=== PATIENT | female | born 1960 | race Caucasian/White ===

== ENCOUNTER 2018-08-23 20:50 | Emergency (ER) | payer OTHER | END 2018-08-23 21:43 | disposition home or self-care (01) | LOC: FER 20:50 ==

== ENCOUNTER 2018-10-01 14:21 | Emergency (ER) | payer OTHER ==
[2018-10-01 14:31] VITALS: TEMP 98.5; BMI 20.7
--- NOTE | 2018-10-01 15:07 | PDOC ---
History of Present Illness - General Chief Complaint: Chest Pain Stated Complaint: CHEST PAIN Time Seen by Provider: 10/01/18 14:45 History Source: Family Exam Limitations: Language Barrier - History of Present Illness Initial Comments: 10/01/18 15:05 58 yo F pmh inactive TB (currently treated) p/w chest and back pain since last night. Pt felt warmth and myalgias on Tuesday09/29/18 then had substernal pleuritic chest pain radiating to the back starting the night of 09/30/18. Pt took ASA which relieved the chest pain but not back pain. No current chest pain , only back pain. Back pain is similar to her chronic back pain. Endorses 1 episode of palpitations on 09/29/18. Denies lightheadedness, headache, SOB, rhinorrhea, new cough, and sick contacts. PMH: Inactive TB, tx start 09/18/18 Meds: rifampin NKDA No surgeries PCP: Lana Melchor Current smoker 10/01/18 17:19 10/01/18 18:44 Past History - Past Medical History Allergies/Adverse Reactions: Allergies Allergy/AdvReac Type Severity Reaction Status Date / Time No Known Allergies Allergy Unverified 10/01/18 14:31 Home Medications: Ambulatory Orders NK [No Known Home Medication] 08/23/18 COPD: No Other medical history: inactive tb on rifampin - Suicide/Smoking/Psychosocial Hx Smoking History: Never smoked Have you smoked in the past 12 months: No Number of Cigarettes Smoked Daily: 0 Hx Alcohol Use: No Drug/Substance Use Hx: No Review of Systems - Review of Systems Constitutional: Yes: Diaphoresis Respiratory: No: Shortness of Breath Cardiac (ROS): Yes: Chest Pain (see hpi ), Palpitations (one episode ). No: Edema, Lightheadedness : No: Dysuria Musculoskeletal: Yes: Other (myalgias, see HPI ) Neurological: Yes: Tingling (left arm). No: Headache *Physical Exam - Vital Signs Last Vital Signs Temp Pulse Resp BP Pulse Ox 98.5 F 77 18 130/90 100 10/01/18 14:25 10/01/18 14:25 10/01/18 14:25 10/01/18 14:25 10/01/18 14:25 - Physical Exam Comments: 07/07/19 15:15 GEN: NAD HEENT: NC/AT CV: S1/S2, RRR, no m/r/g. +2 radial pulses LUNGS: CTAB no wheezes/rales/crackles GI: soft, nt, nd, +BS SKIN: warm but non-erythematous patches in thoracic paraspinal region. BACK: no spinal tenderness or step offs. ED Treatment Course - LABORATORY CBC & Chemistry Diagram: 10/01/18 16:30 10/01/18 16:30 Medical Decision Making - Medical Decision Making 10/01/18 15:18 58 yo F with inactive TB (currently treated) presenting with pleuritic chest and back pain for 1 day. No curent chest pain. Back pain now is similar to previous back pain episodes. ddx: AoD, ACS, Zoster, MSK; unlikely PTX, GERD - CBC, CMP, CARDIAC MARKERS - CXR - EKG dispo: home if 2nd trop neg 10/01/18 18:24 initial troponin neg. 2nd trop @ 20:00 10/01/18 19:20 Signed out to Night team *DC/Admit/Observation/Transfer Diagnosis at time of Disposition: Atypical chest pain - Referrals Referrals: ON STAFF,NOT [Primary Care Provider] - - Patient Instructions - Post Discharge Activity
[2018-10-01 16:42] LABS: WHITE BLOOD COUNT 4.5 K/mm3 (4.0-10.0)
[2018-10-01 16:52] LABS: BASO % 0.6 % (0-2.0); EOS % 4.5 % (0-4.5); HEMATOCRIT 38.1 % (32.4-45.2); HEMOGLOBIN 12.3 GM/dL (10.7-15.3); LYMPH % 19.2 % (8-40); MCH 29.5 pg (25.7-33.7); MCHC 32.4 g/dl (32.0-36.0); MEAN CELL VOLUME 91.1 fl (80-96); MEAN PLT VOLUME 9.3 fl (7.5-11.1); MONO % 10.8 % (3.8-10.2); NEUT % 64.9 % (42.8-82.8); PLATELET COUNT 176 K/MM3 (134-434); RBC 4.18 M/mm3 (3.60-5.2); RDW 13.8 % (11.6-15.6)
[2018-10-01 16:55] LABS: INR 1.08 (0.83-1.09); PROTHROMBIN TIME (PATIENT) 12.7 SEC (9.7-13.0)
[2018-10-01 17:09] LABS: ALBUMIN 3.4 g/dl (3.4-5.0); ALK PHOS 166 U/L (45-117); ANION GAP 5 MMOL/L (8-16); BILIRUBIN,TOTAL 0.2 mg/dL (0.2-1); BLOOD UREA NITROGEN 5.6 mg/dL (7-18); CALCIUM 8.6 mg/dL (8.5-10.1); CHLORIDE 110 mmol/L (98-107); CO2 28 mmol/L (21-32); CREATININE 0.7 mg/dL (0.55-1.3); GLUCOSE,RANDOM 87 mg/dL (74-106); SGOT/AST 127 U/L (15-37); SGPT/ALT 105 U/L (13-61); SODIUM 142 mmol/L (136-145); TOT PROT 6.3 g/dl (6.4-8.2)
--- NOTE | 2018-10-01 19:08 | PDOC ---
Documentation entered by Beverley Figueroa SCRIBE, acting as scribe for Hannah Sarah MD. Hannah Sarah MD: This documentation has been prepared by the Carolina rodriguez Sammi, SCRIBE, under my direction and personally reviewed by me in its entirety. I confirm that the documentation accurately reflects all work, treatment, procedures, and medical decision making performed by me. Attending Attestation - Resident Resident Name: Bradford Araiza - ED Attending Attestation I have performed the following: I have examined & evaluated the patient, The case was reviewed & discussed with the resident, I agree w/resident's findings & plan, Exceptions are as noted - HPI HPI: 10/01/18 18:20 The patient is a 58 year old female, with a significant PMH of inactive TB who presents to the emergency department with substernal chest pain radiating to her back for 1 day. Patient also reports symptoms of myalgia and 1 episode of palpitations 3 days ago. Patient notes taking Asprin which relieved her chest pain however her back pain and myalgia have remained constant. Patient notes back pain is similar to previous episodes in the past. The patient denies shortness of breath, headache and dizziness. Denies fever, chills, nausea, vomiting, diarrhea and constipation. Denies dysuria, frequency, urgency and hematuria. Allergies: NKDA PCP: NOS - Physicial Exam PE: 10/01/18 18:21 GENERAL: Well developed, well nourished. Awake and alert. No acute distress. HEENT: Normocephalic, atraumatic. PERRLA, EOMI. No conjunctival pallor. Sclera are non- icteric. Moist mucous membranes. Oropharynx is clear. NECK: Supple. Full ROM. No JVD. Carotid pulses 2+ and symmetric, without bruits. No thyromegaly. No lymphadenopathy. CARDIOVASCULAR: Regular rate and rhythm. No murmurs, rubs, or gallops. Distal pulses are 2+ and symmetric. PULMONARY: No evidence of respiratory distress. Lungs clear to auscultation bilaterally. No wheezing, rales or rhonchi. ABDOMINAL: Soft. Non-tender. Non-distended. No rebound or guarding. No organomegaly. Normoactive bowel sounds. MUSCULOSKELETAL Normal range of motion at all joints. No bony deformities or tenderness. No CVA tenderness. EXTREMITIES: No cyanosis. No clubbing. No edema. No calf tenderness. SKIN: Warm and dry. Normal capillary refill. No rashes. No jaundice. NEUROLOGICAL: Alert, awake, appropriate. Cranial nerves 2-12 intact. No deficits to light touch and temperature in face, upper extremities and lower extremities. No motor deficits in the in face, upper extremities and lower extremities. Normoreflexic in the upper and lower extremities. Normal speech. Toes are down- going bilaterally. - Medical Decision Making 10/01/18 19:05 68-year-old female came in because of substernal chest painthat had been radiating to her left scapula. Her past medical history significant for recently diagnosed positive PPD. She does not have any symptoms such ascough, fevers, nausea or vomiting or diarrhea. Past surgical history tubal ligation. Past medical history childbirth, positive PPDin July and placed on rifampin PCP she goes to the [address] [place] [address] 10/01/18 20:21 Reviewing her labs there is sl elevation of her LFTs, I have no prior chemistries for driller portable. She denies any epigastric pain or nausea or vomiting Discussed the lab abnormalities w pt and family and she was told to have her LFTs repeated this month at her appt w her PCP
--- NOTE | 2018-10-01 19:18 | PDOC ---
*Physical Exam - Vital Signs Last Vital Signs Temp Pulse Resp BP Pulse Ox 98.5 F 77 18 130/90 100 10/01/18 14:25 10/01/18 14:25 10/01/18 14:25 10/01/18 14:25 10/01/18 14:25 - Physical Exam Comments: 10/01/18 19:27 Gen: Alert, NAD, comfortable-appearing. HEENT: PERRL, EOMI, MMM, NCAT. No conjunctival pallor. Sclera are non-icteric. Oropharynx is clear. CV: Regular rate and rhythm. No murmurs, rubs, or gallops. PULM: No resp distress. CTAB, no wheezes, rales, or rhonchi. ABD: soft, NT/ND, no rebound tenderness or guarding, no CVA tenderness. BACK: No TTP of c/t/l-spine. No step-offs or deformities. MSK: No bony deformities. 2+ pulses in all extremities. NEURO: AAOx3. PERRL. No gross CN deficits. Strength and sensation grossly intact throughout. EXTREMITIES: No cyanosis. No clubbing. No edema. No calf tenderness. PSYCH: Normal mood and thought pattern. SKIN: Warm and dry. Normal capillary refill. No rashes. No jaundice. ED Treatment Course - LABORATORY CBC & Chemistry Diagram: 10/01/18 16:30 10/01/18 16:30 - ADDITIONAL ORDERS Additional order review: Laboratory Results 10/01/18 10/01/18 16:30 16:30 PT with INR 12.70 INR 1.08 Sodium 142 Potassium 4.0 Chloride 110 H Carbon Dioxide 28 Anion Gap 5 L BUN 5.6 L Creatinine 0.7 Est GFR (CKD-EPI)AfAm 110.69 Est GFR (CKD-EPI)NonAf 95.50 Random Glucose 87 Calcium 8.6 Total Bilirubin 0.2 AST 127 H ALT 105 H Alkaline Phosphatase 166 H Creatine Kinase 60 Troponin I < 0.02 Total Protein 6.3 L Albumin 3.4 10/01/18 16:30 RBC 4.18 MCV 91.1 MCHC 32.4 RDW 13.8 MPV 9.3 Neutrophils % 64.9 Lymphocytes % 19.2 Monocytes % 10.8 H Eosinophils % 4.5 Basophils % 0.6 Medical Decision Making - Medical Decision Making 10/01/18 19:08 Sign out received from Dr Araiza. 58yo F hx inactive TB on rifampin, presenting w/ CP and back pain, trop neg, EKG no abnormalities, no concerning findings on bloodwork, pending 2nd trop at 730pm. If negative, d/c home with atypical chest pain dx. Low concern for ACS. Pt seen and assessed at bedside. Pt feels good right now, denies pain, no concerning findings on physical exam. LFTs elevated, no prior labs to compare. Have pt f/u with PCP. 10/01/18 20:38 2nd trop <0.02. Pt feeling good. Return precautions given. Ready for discharge. *DC/Admit/Observation/Transfer Diagnosis at time of Disposition: Atypical chest pain - Discharge Dispostion Disposition: HOME Decision to Admit order: No - Referrals Referrals: ON STAFF,NOT [Primary Care Provider] - - Patient Instructions Printed Discharge Instructions: DI for Atypical Chest Pain Additional Instructions: You have been seen in the Emergency Department for chest pain. Your EKG, chest X -ray, and labs, including Troponin (a heart enzyme), show no signs concerning for an emergent condition such as a heart attack or pneumonia. Follow-up with your primary care doctor within 1 week. Your liver enzymes were elevated - have your primary care doctor re-check at your next appointment. Return to the ED immediately if you experience chest pain, difficulty breathing, dizziness, or any other new or worsening symptom. - Post Discharge Activity
[2018-10-01 21:36] VITALS: BP 134/94; PULSE 82
--- NOTE | 2018-10-02 11:25 | EKG ---
Test Reason : Blood Pressure : / mmHG Vent. Rate : 064 BPM Atrial Rate : 064 BPM P-R Int : 106 ms QRS Dur : 070 ms QT Int : 400 ms P-R-T Axes : 039 067 060 degrees QTc Int : 412 ms SINUS RHYTHM WITH SHORT WI OTHERWISE NORMAL ECG NO PREVIOUS ECGS AVAILABLE Confirmed by MALOU SO MD ([id number]) on 10/02/2018 11:25:08 AM Referred By: Confirmed By:MALOU SO MD
== END 2018-10-01 21:47 | disposition home or self-care (01) ==
LOC: JER 14:21
DX: R07.89 Other chest pain (principal); Z86.11 Personal history of tuberculosis
CPT/HCPCS: 36415; 71045-TC-FY; 80053; 82550; 84484; 85025; 85610; 93005; 93010; 99283-25